=== PATIENT | male | born 1960 | race Caucasian/White ===

== ENCOUNTER 2017-04-13 16:27 | Observation (INO) | payer OTHER ==
[~2017-04-13] VITALS: Ht 170.2 cm; Wt 77.6 kg
[~2017-04-13 16:27] MED LIST: APIX5TAB PO; DIGO250T16 PO
[2017-04-13 16:30] VITALS: Ht 170.2 cm; Wt 77.6 kg
[2017-04-13] MEDS ORDERED: SOD CHLORIDE 0.9% 500 ML IV STA (19:55)
[2017-04-13] MEDS ORDERED: METO50TA16 PO (20:05)
--- NOTE | 2017-04-13 20:14 | RADRPT ---
PROCEDURE: CT Head without. CLINICAL INDICATION: Possible stroke. TECHNIQUE: The study was performed utilizing a multi-slice, multidetector CT scanner. Direct spira l 1 mm axial sections were obtained through the head without the use of intravenous contrast materia l. 1 or more of the following dose reduction techniques were utilized: Automated exposure control, adjustment of the mA and/or kV according to patient's size, iterative reconstruction technique. Co keyonna and sagittal reformations were obtained. The images were reviewed on a PACS workstation. RADIATION DOSE: CTDIvol: 44.6 mGyDLP: 720.2 mGy-cm COMPARISON: No prior studies are available for comparison. FINDINGS: There is no intracranial hemorrhage, extra-axial fluid collection, mass lesion, midline shift or hyd rocephalus. The ventricles, sulci and cisterns are within normal limits. The white matter is unrem arkable. The feliciano-white matter differentiation is preserved. The basal cisterns are patent. The m idline structures are intact. The orbits, calvarium and extracranial soft tissues are normal in graciela earance. The visualized paranasal sinuses, mastoid air cells and middle ear cavities are normally ae rated. IMPRESSION: 1. No acute intracranial abnormality. No intracranial hemorrhage, extra-axial fluid collection, ma ss lesion or hydrocephalous. The above findings were discussed with Patient's physician MORIAH SHEFFIELD by telephone on 04/13/2017 8: 13:44 PM. RPTAT: HGAS .Samir Ennis MD, Date Time Electronically viewed and signed by .Samir Ennis MD, MD on 04/13/2017 20:13 .S/
[2017-04-13 20:27] LABS: ADD SCAN DIFF NO
[2017-04-13 20:31] LABS: ADD UMIC NO; URINE BILIRUBIN (Dip) NEGATIVE (NEGATIVE); URINE BLOOD (Dip) NEGATIVE (NEGATIVE); URINE COLOR LT. YELLOW (YELLOW); URINE GLUCOSE (Dip) NEGATIVE (NEGATIVE); URINE KETONES (Dip) NEGATIVE (NEGATIVE); URINE LEUKOCYTE ESTERASE (Dip) NEGATIVE (NEGATIVE); URINE NITRITE (Dip) NEGATIVE (NEGATIVE); URINE TOTAL PROTEIN (Dip) NEGATIVE (NEGATIVE); URINE UROBILINOGEN (Dip) 0.2 E.U./dL (0.1-1.0)
[2017-04-13 20:31] LABS: BASOPHILS % 0.5 % (0.0-2.0); EOSINOPHILS # 0.2 10^3/ul (0.0-0.5); EOSINOPHILS % 2.8 % (0.0-7.0); HEMATOCRIT 41.3 % (42.0-52.0); HEMOGLOBIN 14.1 g/dl (14.0-18.0); LYMPHOCYTES # 2.5 10^3/ul (0.8-2.9); LYMPHOCYTES % 40.5 % (15.0-51.0); MEAN CORPUSCULAR HEMOGLOBIN 30.8 pg (29.0-33.0); MEAN CORPUSCULAR HGB CONC 34.1 g/dl (32.0-37.0); MEAN CORPUSCULAR VOLUME 90.2 fl (82.0-101.0); MEAN PLATELET VOLUME 11.7 fl (7.4-10.4); MONOCYTE # 0.7 10^3/ul (0.3-0.9); MONOCYTES % 11.3 % (0.0-11.0); NEUTROPHIL # 2.8 10^3/ul (1.6-7.5); NEUTROPHILS % 44.7 % (39.0-77.0); PLATELET COUNT 249 10^3/UL (140-415); RED BLOOD COUNT 4.58 10^6/ul (4.70-6.10); RED CELL DISTRIBUTION WIDTH 13.1 % (11.5-14.5); WHITE BLOOD COUNT 6.2 10^3/ul (4.8-10.8)
[2017-04-13 20:47] LABS: INR 1.12; PROTIME 14.4 Sec (12.2-14.2); PT RATIO 1.1
[2017-04-13 20:48] LABS: ANION GAP 12 (8-16); BLOOD UREA NITROGEN 20 mg/dl (7-20); CALCIUM 9.3 mg/dl (8.4-10.2); CARBON DIOXIDE 22 mmol/L (21-31); CHLORIDE 106 mmol/L (97-110); CREATININE 1.05 mg/dl (0.61-1.24); GLUCOSE 103 mg/dl (70-220); PARTIAL THROMBOPLASTIN TIME 28.9 Sec (25.0-35.0); SODIUM 136 mmol/L (135-144)
--- NOTE | 2017-04-13 20:50 | RADRPT ---
PROCEDURE: XR Chest. CLINICAL INDICATION: Possible stroke. Neurological deficit. TECHNIQUE: Single frontal chest x-ray. COMPARISON: None available. FINDINGS: The cardiomediastinal silhouette is mildly enlarged. No pneumothorax, pleural effusion or consolidation is seen. No acute osseous abnormality is noted. IMPRESSION: 1. Mild cardiomegaly. RPTAT: HFN .Ita Jones MD, Date Time Electronically viewed and signed by .Ita Jones MD, on 04/13/2017 20:50 .N/
[2017-04-13 21:00] LABS: TROPONIN-I < 0.012 ng/ml (0.00-0.12)
[2017-04-13 21:03] LABS: BARBITURATES NEGATIVE (NEGATIVE); BENZODIAZEPINES NEGATIVE (NEGATIVE); CANNABINOIDS NEGATIVE (NEGATIVE); COCAINE NEGATIVE (NEGATIVE); OPIATES NEGATIVE (NEGATIVE)
[2017-04-13] MEDS ORDERED: KETOROLAC 30 MG INJ IV STA (21:46)
[2017-04-13] MEDS ORDERED: ASPIRIN 325 MG TAB PO ONE (22:00)
[2017-04-13] MEDS ORDERED: ONDANSETRON 4 MG INJ IV PRN (22:30)
[2017-04-13] MEDS ORDERED: ACETAMINOPHEN 325 MG TAB PO PRN (22:30)
--- NOTE | 2017-04-13 22:42 | ERA ---
ER Documentation Chief Complaint Date/Time DATE: 04/13/17 TIME: 22:34 Chief Complaint LEFT SIDED NUMBNESS STARTED 2PM YESTEDAY. A&OX4. SPEECH CLEAR. CATERING DIRECTOR EQUAL HPI This 56-year-old male came in the emergency room for several hours of numbness and vertigo that started abruptly at around 2 PM yesterday. Over hours this cleared. The patient still has some dizziness and has a headache. 2 weeks ago he stopped his anticoagulant medications for atrial fibrillation. States that he was unable to feel his left leg and arm for several hours but did not present to the hospital at that time. His headache is mild to moderate and is a bandlike sensation goes from the frontal region to the occipital region. This headache came on gradually. ROS All systems reviewed and are negative except as per history of present illness. Medications Home Meds Reported Medications Metoprolol Succinate* (Toprol XL*) 50 Mg Tab.er.24h, 50 MG PO DAILY, #30 TAB 04/13/17 Allergies Allergies: Coded Allergies: No Known Allergy (Unverified , 04/13/17) PMhx/Soc History of Surgery: Yes (ABDOMINAL HERNIA ) Anesthesia Reaction: No Hx Neurological Disorder: No Hx Respiratory Disorders: Yes (COPD) Hx Cardiac Disorders: Yes (A FIB ) Hx Psychiatric Problems: No Hx Miscellaneous Medical Probl: Yes (HIGH CHOLESTEROL ) Hx Alcohol Use: No Hx Substance Use: No Hx Tobacco Use: No Smoking Status: Never smoker Physical Exam Vitals Vital Signs Date Time Temp Pulse Resp B/P Pulse Ox O2 Delivery O2 Flow Rate FiO2 04/13/17 21:45 98.5 64 16 123/95 100 Room Air 04/13/17 20:13 71 17 111/78 98 Room Air 04/13/17 19:42 98.2 72 16 109/79 99 Room Air 04/13/17 16:30 97.9 91 19 114/70 98 Physical Exam Const: [] No distress Head: Atraumatic Eyes: Normal Conjunctiva, EOMI, PRL ENT: Normal External Ears, Nose and Mouth. Neck: Full range of motion..~ No meningismus. Resp: Clear to auscultation bilaterally Cardio: Regular rate and rhythm, no murmurs Abd: Soft, non tender, non distended. Normal bowel sounds Skin: No petechiae or rashes Back: No midline or flank tenderness Ext: No cyanosis, or edema ,distal pulses intact all 4 extremities Neur: Awake and alert and oriented 3, creatinine is 2 through 12 intact, no cerebellar deficits, 5 out of 5 strength all extremity Psych: Normal Mood and Affect Result Diagram: 04/13/17201404/13/172014 Results 24 hrs Laboratory Tests Test 04/13/17 20:05 04/13/17 20:14 04/13/17 20:15 Urine Color LT. YELLOW Urine Clarity CLEAR Urine pH 6.0 Urine Specific [place] <=1.005 Urine Ketones NEGATIVE Urine Nitrite NEGATIVE Urine Bilirubin NEGATIVE Urine Urobilinogen 0.2 E.U./dL Urine Leukocyte Esterase NEGATIVE Urine Hemoglobin NEGATIVE Urine Glucose NEGATIVE% Urine Total Protein NEGATIVE Urine Opiates Screen NEGATIVE Urine Barbiturates NEGATIVE Urine Amphetamines Screen NEGATIVE Urine Benzodiazepines Screen NEGATIVE Urine Cocaine Screen NEGATIVE Urine Cannabinoids NEGATIVE Bedside Glucose 90mg/dL White Blood Count 6.210^3/ul Red Blood Count 4.5810^6/ul Hemoglobin 14.1g/dl Hematocrit 41.3% Mean Corpuscular Volume 90.2fl Mean Corpuscular Hemoglobin 30.8pg Mean Corpuscular Hemoglobin Concent 34.1g/dl Red Cell Distribution Width 13.1% Platelet Count 60254^3/UL Mean Platelet Volume 11.7fl Neutrophils % 44.7% Lymphocytes % 40.5% Monocytes % 11.3% Eosinophils % 2.8% Basophils % 0.5% Nucleated Red Blood Cells % 0.0/100WBC Neutrophils # 2.810^3/ul Lymphocytes # 2.510^3/ul Monocytes # 0.710^3/ul Eosinophils # 0.210^3/ul Basophils # 0.010^3/ul Nucleated Red Blood Cells # 0.010^3/ul Prothrombin Time 14.4Sec Prothrombin Time Ratio 1.1 INR International Normalized Ratio 1.12 Activated Partial Thromboplast Time 28.9Sec Sodium Level 136mmol/L Potassium Level 4.0mmol/L Chloride Level 106mmol/L Carbon Dioxide Level 22mmol/L Anion Gap 12 Blood Urea Nitrogen 20mg/dl Creatinine 1.05mg/dl Glucose Level 103mg/dl Hemoglobin A1c 6.0% Calcium Level 9.3mg/dl Troponin I < 0.012ng/ml Current Medications Medications (Trade) Dose Ordered Sig/Sunita Route PRN Reason Start Time Stop Time Status Last Admin Dose Admin Sodium Chloride (NS) 500 ml @ 500 mls/hr Q1H STAT IV 04/13/17 19:55 04/13/17 20:54 DC 04/13/17 20:18 Ketorolac Tromethamine (Toradol) 30 mg ONCE STAT IV 04/13/17 21:46 04/13/17 21:48 DC 04/13/17 21:54 Aspirin (Aspirin) 325 mg ONCE ONCE PO 04/13/17 22:00 04/13/17 22:01 DC 04/13/17 21:54 Ondansetron HCl (Zofran Inj) 4 mg ER BRIDGE PRN IV NAUSEA AND/OR VOMITING 04/13/17 22:30 04/14/17 22:29 Acetaminophen (Tylenol Tab) 650 mg ER BRIDGE PRN PO MILD PAIN/FEVER 04/13/17 22:30 04/14/17 22:29 Procedures/MDM Symptoms very concerning for TIA in a high risk patient being recently off anticoagulation having atrial fibrillation. Patient's head CT returned negative fortunately he was given 325 mg aspirin. He was also given Toradol IV which helped with his headache. Has no signs of cardiac ischemia currently. And has shows scaly ER was 0. I spoke to Dr. Cha agrees to admit the patient to observation for MRI and further workup. Very low suspicion for subarachnoid hemorrhage secondary to patient's gradual presentation of headache and easily resolution in the emergency room. EKG interpretation: Atrial fibrillation rate of 66, normal axis, no ST or T- wave changes concerning for acute ischemia, normal intervals. groundwater monitoring technician interpretation: Atrial fibrillation is rate controlled without any other arrhythmias Chest x-ray interpretation: I see no acute process, no vitamins tenderness or pneumothorax no pulmonary edema, no fractures CT head interpretation: I see no acute process. I see no hemorrhage no mass- effect or midline shift no skull fractures Departure Diagnosis: Primary Impression: TIA (transient ischemic attack) Additional Impression: Headache Condition: Stable YOHANNES MAJOR DO April 13, 2017 22:42
[2017-04-13 23:27] VITALS: TEMP 98.2
[2017-04-14] VITALS (12 sets, daily range): BP systolic 98–121; BP diastolic 61–81; PULSE 58–78; RESP 15–19
[2017-04-14] MEDS ORDERED: KETOROLAC 30 MG INJ IV PRN (01:00)
[2017-04-14 08:19] LABS: ADD SCAN DIFF NO
[2017-04-14] MEDS: METOPROLOL (XL) 50 MG TAB PO SCH (08:39)
[2017-04-14 08:42] LABS: BASOPHILS % 0.5 % (0.0-2.0); EOSINOPHILS # 0.1 10^3/ul (0.0-0.5); EOSINOPHILS % 2.4 % (0.0-7.0); HEMATOCRIT 43.6 % (42.0-52.0); HEMOGLOBIN 14.3 g/dl (14.0-18.0); LYMPHOCYTES # 2.4 10^3/ul (0.8-2.9); LYMPHOCYTES % 41.6 % (15.0-51.0); MEAN CORPUSCULAR HGB CONC 32.8 g/dl (32.0-37.0); MEAN CORPUSCULAR VOLUME 91.6 fl (82.0-101.0); MONOCYTE # 0.7 10^3/ul (0.3-0.9); MONOCYTES % 11.3 % (0.0-11.0); NEUTROPHIL # 2.6 10^3/ul (1.6-7.5); NEUTROPHILS % 44.2 % (39.0-77.0); PLATELET COUNT 247 10^3/UL (140-415); RED BLOOD COUNT 4.76 10^6/ul (4.70-6.10); RED CELL DISTRIBUTION WIDTH 13.3 % (11.5-14.5); WHITE BLOOD COUNT 5.8 10^3/ul (4.8-10.8)
[2017-04-14 08:49] LABS: POTASSIUM 4.5 mmol/L (3.5-5.1)
[2017-04-14 08:52] LABS: CREATININE 1.08 mg/dl (0.61-1.24)
[2017-04-14 08:53] LABS: CALCIUM 9.3 mg/dl (8.4-10.2); CHOL/HDL RATIO 3.4 RATIO
--- NOTE | 2017-04-14 10:26 | RADRPT ---
Echocardiogram Report Patient Name: PALOMO SALDAÑA Gender: Male Date: 1960 Study Date: 14-Apr-2017 Pond Worker: Matheus Moncada [facility] Location: 518 Ref. Physician: KENDELL RIVERA Quality: Good Procedures: Transthoracic echocardiogram with complete 2D, M-Mode, and doppler examination. Indications: Atrial Fibrillation. 2D/M Mode Doppler Measurement Value Normal Ranges Measurement Value Normal Ranges LVIDd 2D 3.7 3.5 - 5.6 cm AV Peak Manuel 1.7 m/sec LVIDs 2D 2.7 2.1 - 4.1 cm AV Peak PG 10.9 mmHg LVPWd 2D 0.9 0.6 - 1.1 cm LVOT Peak Manuel 0.9 m/sec IVSd 2D 1.0 0.6 - 1.1 cm LVOT Peak PG 3.6 mmHg AoR Diam 2D 2.8 2.0 - 3.7 cm MV PHT 145.5 msec EDV 2D 57.6 cm3 MV Peak Manuel 2.2 m/sec ESV 2D 19.4 cm3 MV Peak PG 19.6 mmHg LA Dimen 2D 3.9 2.3 - 4.0 cm MV Mean Manuel 1.2 m/sec MV Mean PG 7.6 mmHg MV PHT 145.5 msec MV VTI 49.9 cm MVA PHT 1.5 cm2 TR Peak Manuel 2.7 m/sec TR Peak PG 28.3 mmHg RVSP 36.0 mmHg Findings Left Ventricle: Normal left ventricular systolic function. Normal left ventricular cavity size. Normal left ventricular wall thickness. Ejection fraction is visually estimated at 65 %. Right Ventricle: Normal right ventricular size. Normal right ventricular systolic function. Left Atrium: The left atrium is normal in size. Right Atrium: The right atrium is normal in size. Mitral Valve: Mitral valve leaflets appear mildly thickened. Mild mitral annular calcification. Mild to moderate mitral valve regurgitation. Mild mitral stenosis. MeanPG 7.60 mmHg. Aortic Valve: Normal appearance of the aortic valve. No significant aortic stenosis or insufficiency. Tricuspid Valve: Normal appearance of the tricuspid valve. Estimated peak PA systolic pressure 36 mmHg. There is mild tricuspid regurgitation. Pulmonic Valve: Normal pulmonic valve appearance. There is trace pulmonic regurgitation. Pericardium: Normal pericardium with no significant pericardial effusion. Aorta: Normal aortic root. IVC: Dilated IVC with respiratory collapse consistent with elevated right atrial pressure. Conclusions Normal left ventricular systolic function. Normal left ventricular cavity size. Normal left ventricular wall thickness. Ejection fraction is visually estimated at 65 %. Normal right ventricular size. Normal right ventricular systolic function. The left atrium is normal in size. The right atrium is normal in size. Mild to moderate mitral valve regurgitation. Mild mitral stenosis. Estimated peak PA systolic pressure 36 mmHg. There is mild tricuspid regurgitation. No significant aortic stenosis or insufficiency. Normal pericardium with no significant pericardial effusion. Electronically Signed By: Cole Moss 14-Apr-2017 10:26:06 -0700 Patient Name: PALOMO SALDAÑA Study Date: 14-Apr-2017 [id number]
[2017-04-14] MEDS: APIXABAN 5 MG TABLET PO SCH ×2 (11:02→20:47)
--- NOTE | 2017-04-14 11:09 | CONS ---
Date/Time of Note Date/Time of Note DATE: 04/14/17 TIME: 10:51 Assessment/Plan Assessment/Plan Additional Assessment/Plan Left-sided weakness, resolved Atrial fibrillation Preserved ejection fraction Mitral valve disease -Patient with left-sided weakness lasting 1 hour which later resolved. He has had no further recurrence of symptoms. Echocardiogram with preserved ejection fraction. Given concern for TIA and patient with atrial fibrillation, would recommend restarting anticoagulation if no contraindication. Patient was previously on Eliquis 5 mg p.o. twice daily. Would continue. Continue Lopressor for rate control. Start statin therapy. Will order carotid Dopplers. Otherwise no further inpatient cardiac workup needed at the current time. Consultation Date/Type/Reason Admit Date/Time April 13, 2017 at 22:10 Type of Consultation: cv Reason for Consultation Atrial fibrillation Hx of Present Illness This is a 56-year-old male with past medical history of atrial fibrillation, mitral valve disease who presented to the emergency room secondary to 1 hour episode of left arm and left lower extremity weakness. Patient works as an maintenance electrician. While he was working, he felt sudden onset of left arm and left lower extremity weakness and numbness. His speech was not affected. He had mild symptoms of dizziness at the same time. Symptoms resolved after 1 hour. He did go see his physician and he was awaiting outpatient imaging studies to be done. He was concerned regarding his symptoms, and he came to the emergency room yesterday for further evaluation and care. He denies any prior episodes of similar symptoms or any further symptoms since then. He was previously on Eliquis for anticoagulation and this was stopped in early March. As per the patient, he was told he had minimal risk factors and it was unclear of the benefits of anticoagulation. He denies any bleeding tendencies at the current time. He denies any chest pain, palpitations, dizziness or lightheadedness. 12 point review of systems was performed with all pertinent positives and negatives mentioned above and all else is negative Past Medical History Atrial fibrillation Mitral valve disease Family History Significant Family History: no pertinent family hx Social History Alcohol Use: none Smoking Status: Never smoker Other Social History Works as an maintenance electrician Exam/Review of Systems Vital Signs Vitals Vital Signs Date Time Temp Pulse Resp B/P Pulse Ox O2 Delivery O2 Flow Rate FiO2 04/14/17 08:19 64 04/14/17 07:08 98.2 19 108/74 99 04/13/17 23:27 Room Air Intake and Output 04/13/17 04/13/17 04/14/17 15:00 23:00 07:00 Intake Total 500 ml 360 ml Balance 500 ml 360 ml Exam No apparent distress Constitutional: alert, oriented, well developed Head: normocephalic Neck: supple Respiratory: other (Coarse breath sounds bilaterally, no wheezing) Cardiovascular: irregular rhythm, other (S1-S2 heard), systolic murmur Gastrointestinal: bowel sounds, non-tender, other (No guarding), soft Extremities: other (No edema) Neurological: other (+5 out of 5 muscle strength in all 4 extremities) Results Result Diagram: 04/14/17 0710 04/14/17 0710 Results 24 hrs Laboratory Tests Test 04/13/17 20:05 04/13/17 20:14 04/13/17 20:15 04/14/17 01:00 Urine Color LT. YELLOW Urine Clarity CLEAR Urine pH 6.0 Urine Specific [place] <=1.005 L Urine Ketones NEGATIVE Urine Nitrite NEGATIVE Urine Bilirubin NEGATIVE Urine Urobilinogen 0.2 E.U./dL Urine Leukocyte Esterase NEGATIVE Urine Hemoglobin NEGATIVE Urine Glucose NEGATIVE Urine Total Protein NEGATIVE Urine Opiates Screen NEGATIVE Urine Barbiturates NEGATIVE Urine Amphetamines Screen NEGATIVE Urine Benzodiazepines Screen NEGATIVE Urine Cocaine Screen NEGATIVE Urine Cannabinoids NEGATIVE Bedside Glucose 90 White Blood Count 6.2 Red Blood Count 4.58 L Hemoglobin 14.1 Hematocrit 41.3 L Mean Corpuscular Volume 90.2 Mean Corpuscular Hemoglobin 30.8 Mean Corpuscular Hemoglobin Concent 34.1 Red Cell Distribution Width 13.1 Platelet Count 249 Mean Platelet Volume 11.7 H Neutrophils % 44.7 Lymphocytes % 40.5 Monocytes % 11.3 H Eosinophils % 2.8 Basophils % 0.5 Nucleated Red Blood Cells % 0.0 Neutrophils # 2.8 Lymphocytes # 2.5 Monocytes # 0.7 Eosinophils # 0.2 Basophils # 0.0 Nucleated Red Blood Cells # 0.0 Prothrombin Time 14.4 H Prothrombin Time Ratio 1.1 INR International Normalized Ratio 1.12 Activated Partial Thromboplast Time 28.9 Sodium Level 136 Potassium Level 4.0 Chloride Level 106 Carbon Dioxide Level 22 Anion Gap 12 Blood Urea Nitrogen 20 Creatinine 1.05 Glucose Level 103 Hemoglobin A1c 6.0 H Calcium Level 9.3 Troponin I < 0.012 < 0.012 Test 04/14/17 07:10 White Blood Count 5.8 Red Blood Count 4.76 Hemoglobin 14.3 Hematocrit 43.6 Mean Corpuscular Volume 91.6 Mean Corpuscular Hemoglobin 30.0 Mean Corpuscular Hemoglobin Concent 32.8 Red Cell Distribution Width 13.3 Platelet Count 247 Mean Platelet Volume 12.0 H Neutrophils % 44.2 Lymphocytes % 41.6 Monocytes % 11.3 H Eosinophils % 2.4 Basophils % 0.5 Nucleated Red Blood Cells % 0.0 Neutrophils # 2.6 Lymphocytes # 2.4 Monocytes # 0.7 Eosinophils # 0.1 Basophils # 0.0 Nucleated Red Blood Cells # 0.0 Sodium Level 141 Potassium Level 4.5 Chloride Level 107 Carbon Dioxide Level 20 L Anion Gap 19 #H Blood Urea Nitrogen 17 Creatinine 1.08 Glucose Level 98 Calcium Level 9.3 Triglycerides Level 89 Cholesterol Level 178 LDL Cholesterol, Calculated 108 HDL Cholesterol 52 Cholesterol/HDL Ratio 3.4 Medications Medications Current Medications Metoprolol Succinate (Toprol Xl) 50 mg DAILY PO Last administered on 04/14/17t 08:39; Admin Dose 50 MG; Start 04/14/17 at 09:00 Ketorolac Tromethamine (Toradol) 30 mg Q8H PRN IV PAIN; Start 04/14/17 at 01:00 ; Stop 04/17/17 at 00:59 Apixaban (Eliquis) 5 mg BID PO ; Start 04/14/17 at 10:30 Atorvastatin Calcium (Lipitor) 20 mg HS PO ; Start 04/14/17 at 21:00 Procedures Procedures ECG demonstrates atrial fibrillation at 66 bpm, QRS 89 ms, no significant ischemic STT wave abnormalities Cole Moss DO April 14, 2017 11:06
--- NOTE | 2017-04-14 11:35 | RADRPT ---
PROCEDURE: US Carotids. CLINICAL INDICATION: bruit , tia TECHNIQUE: Multiple sonographic of the carotid bifurcation region and vertebral arteries were obta ined utilizing feliciano scale, duplex and color-flow imaging. The images were reviewed on a PACS worksta tion. COMPARISON: No prior studies are available for comparison. FINDINGS: Evaluation of the right carotid bifurcation region reveals no significant calcific atherosclerotic d isease. Evaluation of the left carotid bifurcation region reveals no significant calcific atherosclerotic di sease. There is antegrade flow within the vertebral arteries bilaterally. RIGHT CAROTID MEASUREMENTS: Common Carotid Arcdti09.9 (cm/sec) Internal Carotid Artery - aakrsufc60.9 (cm/sec) Internal Carotid Artery - mid50.1 (cm/sec) Internal Carotid Artery - .8 (cm/sec) Internal Carotid/Common Carotid0.95 LEFT CAROTID MEASUREMENTS: Common Carotid Gykflu60.8 (cm/sec) Internal Carotid Artery - eljrtdew64.2 (cm/sec) Internal Carotid Artery - mid52.8 (cm/sec) Internal Carotid Artery - puuhwg19 (cm/sec) Internal Carotid/Common Carotid0.78 RPTAT: AA IMPRESSION: No evidence for hemodynamically significant stenosis in the bilateral internal carotid arteries - va lidated velocity measurements with angiographic measurements, velocity criteria are extrapolated fro m diameter data as defined by the Society of Radiologists in Ultrasound Consensus Conference Radiolo gy 2003; 229;340-346. This study does indirectly reference the measurement of the distal ICA diamet er as the denominator for stenosis measurement. Normal antegrade flow in the vertebral arteries bilaterally. .Miguel Jenkins MD, Date Time Electronically viewed and signed by .Miguel Jenkins MD, MD on 04/14/2017 11:34 .S/
[2017-04-14] MEDS ORDERED: traMADol 50 MG TAB PO PRN (17:00)
--- NOTE | 2017-04-14 17:50 | HP ---
DATE OF ADMISSION: 04/13/2017 PRIMARY CARE PHYSICIAN: Unknown. PRIMARY CUT PRESSMAN: Dr. Cramer. CHIEF COMPLAINT ON ADMISSION: Left-sided weakness. HISTORY OF PRESENT ILLNESS: This is a 56-year-old male with known atrial fibrillation and apparentl y also with mitral valve disease who presented to the emergency department due to an episode of left arm and left lower extremity weakness. The patient reports that he had evaluation by his cardiolo gist this past March and was then taken off anticoagulation, Eliquis and also Lipitor from what he is reporting and the day prior to admission, he had an episode of left upper extremity and left lower e xtremity weakness that lasted 1 hour and resolved after that. The patient was concerned regarding h is symptoms; therefore, he came to the emergency department greater than 24 hours later. He denies any dizziness, nausea, vomiting, diplopia, sensory deficit, difficulty ambulating, difficulty focusi ng with this episode. He denies any previous episodes similar and no similar episodes since then. In the emergency department, he had a CAT scan of the brain which was negative. He was found to be in atrial fibrillation, rate controlled with his metoprolol. Due to the fact that he was on anticoa gulation with atrial fibrillation there was concern for cerebrovascular accident versus transient is chemic attack episode. Patient was admitted to observation for evaluation. He had MRI/MRA of the b rain which are still pending currently. Will have been notified by MRI that he has to be pushed aurea k to tomorrow. Therefore, there is delay in service keeping the patient here an extra day. He has been restarted on Eliquis per Dr. Moss's evaluation and also 2-D echocardiogram has been done. He had a carotid ultrasound which was negative. Pending his MRI tomorrow morning the patient will be discharged. ALLERGIES: NO KNOWN ALLERGIES. PAST MEDICAL HISTORY: 1. Atrial fibrillation. 2. Mitral valve disease 3. Mitral regurgitation. FAMILY HISTORY: Nonpertinent. PAST SURGICAL HISTORY: None. REVIEW OF SYSTEMS: As per HPI. OUTPATIENT MEDICATIONS: 1. Metoprolol XL 50 mg p.o. daily. 2. Eliquis 5 mg p.o. daily. 3. Lipitor 20 mg p.o. at bedtime, but the patient has stopped it previously. PHYSICAL EXAMINATION: VITAL SIGNS: Temperature is 98.0, heart rate of 70, atrial fibrillation, rate controlled blood pres sure is 121/81. Patient is satting 98% on room air. GENERAL: He is alert and oriented x4. He is in no acute distress currently. He denies any left he miparesis of any sort and he is back to his baseline. HEENT: Pupils are equally round and reactive to light. Extraocular muscles are intact. Anicteric sclerae. NECK: No JVD, no thyromegaly noted. LUNGS: Clear to auscultation bilaterally. ABDOMEN: Soft, nontender, nondistended. Bowel sounds are present. EXTREMITIES: No edema, clubbing or cyanosis. NEUROLOGIC: Moderate strength is 5/5 bilaterally upper and lower extremities. There are no signs o f hemiparesis, currently. Gait is within normal. Patient is able to ambulate. Sensation is intact . Vision intact. Cranial nerves II through XII intact. LABORATORY DATA: White blood cell count is 5.8, hemoglobin 14.3, hematocrit 43.6, platelet count of 247. Chemistry with a sodium of 141, potassium 4.5, chloride 107, bicarbonate 20, BUN 17, creatini ne 1.08, glucose of 98. Hemoglobin A1c 6.0, calcium of 9.3. Troponins are negative x2, triglycerid es 89. Cholesterol 178, LDL is 108, HDL of 52. INR 1.12, PT 28.9. PT 14.4. Urinalysis is within normal. Tox screen is also negative on admission. RADIOLOGICAL DATA: 1. Chest x-ray shows mild cardiomegaly and no other acute cardiopulmonary disease seen. 2. CAT scan of the brain shows no acute intracranial abnormalities. 3. Carotid Dopplers are within normal. MRI/MRA brain and MRA neck are all pending at this time. EKG shows atrial fibrillation, rate controlled. ASSESSMENT AND PLAN: This is a 56-year-old male with: 1. Transient episode of left hemiparesis which is completely resolved currently, possibly a transie nt ischemic attack given his underlying atrial fibrillation. Therefore, I agree with Dr. Moss. T he patient is placed back on Eliquis 5 mg p.o. b.i.d. 2. He is to continue Toprol-XL for rate control. 3. Atrial fibrillation, rate controlled, now back on anticoagulation, stable. 4. Hyperlipidemia, on Lipitor. 5. Prophylaxis: Pepcid for gastrointestinal prophylaxis and patient back on anticoagulation algricel y. DISPOSITION: Awaiting MRI/MRA of the brain and MRA neck to complete his rule out transient ischemic attack workup, since it has been pushed back tomorrow due to availability of MRI, this is delaying discharge as the patient is currently discharged today. The MRIs were done today. We will await fo r MRI to be done in the morning prior to discharge. Dictated By: BETH HESS/RENETTA Conf#: [id number] DID#: [id number]
[2017-04-14] MEDS ORDERED: ATORVASTATIN 20 MG TAB PO SCH (21:00)
[2017-04-15] VITALS (9 sets, daily range): BP systolic 100–122; BP diastolic 61–75; PULSE 58–72; RESP 15–18
[2017-04-15] MEDS: APIXABAN 5 MG TABLET PO SCH (08:10)
[2017-04-15] MEDS: METOPROLOL (XL) 50 MG TAB PO SCH (08:11)
--- NOTE | 2017-04-15 12:05 | RADRPT ---
PROCEDURE: MRI Brain without contrast. CLINICAL INDICATION: Dizziness and numbness of left arm. Transient ischemic attack. TECHNIQUE: An MRI of the brain was performed utilizing the following sequences: Sagittal and axial T1 weighted, axial T2 weighted, axial diffusion weighted with ADC mapping, coronal GRE, and axial F LAIR. COMPARISON: None. FINDINGS: There are few foci of restricted diffusion are noted in the right parietal lobe measuring up to 1.1 cm consistent with acute/recent infarcts. No hypointense signal abnormalities are seen on the GRE im ages to suggest the presence of blood degradation products. There is no evidence of intracranial he morrhage, mass effect, or midline shift. No extra-axial fluid collections are seen. The ventricles a nd sulci are mildly enlarged indicative of volume loss. There are mild scattered foci of T2 FLAIR hyperintensity in the periventricular, deep, and subcortic al white matter, which are nonspecific in etiology but likely reflect chronic small vessel ischemic changes. No abnormal intracranial vascular flow void is noted. The visualized paranasal sinuses demonstrate m ild to moderate scattered mucosal thickening more pronounced in ethmoid air cells and maxillary sinu ses. There are mucous retention cyst in bilateral maxillary sinuses. IMPRESSION: 1. 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 2. Mild chronic small vessel ischemic changes. 3. Mild generalized cerebral volume loss. A call report was made and above findings were discussed and acknowledged by patient's nurse ROS wilder on 04/15/2017 11:59:54 AM to relay to responsible physician. RPTAT: HFN .Ita Jones MD, Date Time Electronically viewed and signed by .Ita Jones MD, MD on 04/15/2017 12:05 .N/
--- NOTE | 2017-04-15 12:09 | RADRPT ---
PROCEDURE: MRA Neck without contrast. CLINICAL INDICATION: Transit ischemic attack. TECHNIQUE: An MRA of the major cervical arteries was performed utilizing axial 2D time of flight, 3-D [id number]-rfsvmh through the carotid bifurcations, and dynamic contrast enhanced 3-D MR angiograph y technique. Source and MIP images were reviewed. COMPARISON: Carotid ultrasound 04/14/2017. FINDINGS: The origins of the great vessels off the aortic arch are not visualized for evaluation. The common carotid and internal carotid arteries are patent without hemodynamically significant stenosis by DOMENICA CET criteria. Direct measurements of vessel diameters was made in reference to measurements of the d istal internal carotid artery diameter. Bilateral vertebral arteries are patent without high-grade stenosis. IMPRESSION: 1. Patent major neck arteries. RPTAT: HFN .Ita Jones MD, Date Time Electronically viewed and signed by .Ita Jones MD, on 04/15/2017 12:09 .N/
--- NOTE | 2017-04-15 12:10 | RADRPT ---
PROCEDURE: MRA Brain. CLINICAL INDICATION: Transit ischemic attack. TECHNIQUE: An MRA of the brain was performed without intravenous contrast utilizing the following sequences: 3-D [id number] images through the intracranial vasculature with post processed vibha l intensity projections in multiple planes. COMPARISON: Concurrent MRI of the brain. FINDINGS: The petrous, cavernous, and supraclinoid internal carotid artery segments are patent without evidenc e of significant stenosis. The proximal anterior cerebral and middle cerebral arteries are patent wi thout significant stenosis. The intradural vertebral arteries, basilar artery and posterior cerebra l arteries are patent without evidence of significant focal stenosis. No aneurysms are identified. IMPRESSION: 1. Patent major intracranial arteries. RPTAT: HFN .Ita Jones MD, MD Date Time Electronically viewed and signed by .Ita Jones MD, MD on 04/15/2017 12:10 .N/
--- NOTE | 2017-04-15 12:38 | PN ---
Date/Time of Note Date/Time of Note DATE: 04/15/17 TIME: 12:32 Assessment/Plan VTE Prophylaxis VTE Prophylaxis Intervention: other (on Eliquis ) Lines/Catheters IV [facility] Saline Lock Assessment/Plan Assessment/Plan 56-year-old male with: 1. Transient episode of left hemiparesis which is completely resolved currently , MRI did show few foci of acute/recent infarcts in the right parietal lobe. Already back on Eliquis given A fib Continue Toprol-XL for rate control. 2. Atrial fibrillation, rate controlled, now back on anticoagulation, stable. 4. Hyperlipidemia, on Lipitor. Prophylaxis: Pepcid for gastrointestinal prophylaxis and patient back on anticoagulation already. DISPOSITION: D/c home and follow up with PCP and cardiology in 1 to 2 weeks. Subjective 24 Hr Interval Summary Free Text/Dictation Patient has no residual hemiparesis Neurologically back to baseline Exam/Review of Systems Vital Signs Vitals Vital Signs Date Time Temp Pulse Resp B/P Pulse Ox O2 Delivery O2 Flow Rate FiO2 04/15/17 12:00 68 04/15/17 11:44 98.1 18 122/61 96 04/13/17 23:27 Room Air Intake and Output 04/14/17 04/14/17 04/15/17 15:00 23:00 07:00 Intake Total 800 ml 240 ml Balance 800 ml 240 ml Exam Constitutional: alert, oriented, well developed Respiratory: clear to auscultation, normal air movement Cardiovascular: nl pulses, regular rate and rhythm Gastrointestinal: non-tender, soft Musculoskeletal: nl extremities to inspection Extremities: normal pulses, other (no edema, clubbing or cyanosis ) Neurological: DELIVERY RECRUITER II-XII intact, nl mental status, nl speech, nl strength Results Result Diagram: 04/14/17 0710 04/14/17 0710 Medications Medications Current Medications Metoprolol Succinate (Toprol Xl) 50 mg DAILY PO Last administered on 04/15/17 08:11; Admin Dose 50 MG; Start 04/14/17 at 09:00 Apixaban (Eliquis) 5 mg BID PO Last administered on 04/15/17 08:10; Admin Dose 5 MG; Start 04/14/17 at 10:30 Atorvastatin Calcium (Lipitor) 20 mg HS PO Last administered on 04/14/17 20:47 ; Admin Dose 20 MG; Start 04/14/17 at 21:00 Tramadol HCl (Ultram) 50 mg Q6H PRN PO PAIN; Start 04/14/17 at 17:00 Procedures Procedures PROCEDURE: MRI Brain without contrast. CLINICAL INDICATION: Dizziness and numbness of left arm. Transient ischemic attack. TECHNIQUE: An MRI of the brain was performed utilizing the following sequences : Sagittal and axial T1 weighted, axial T2 weighted, axial diffusion weighted with ADC mapping, coronal GRE, and axial FLAIR. COMPARISON: None. FINDINGS: There are few foci of restricted diffusion are noted in the right parietal lobe measuring up to 1.1 cm consistent with acute/recent infarcts. No hypointense signal abnormalities are seen on the GRE images to suggest the presence of blood degradation products. There is no evidence of intracranial hemorrhage, mass effect, or midline shift. No extra-axial fluid collections are seen. The ventricles and sulci are mildly enlarged indicative of volume loss. There are mild scattered foci of T2 FLAIR hyperintensity in the periventricular , deep, and subcortical white matter, which are nonspecific in etiology but likely reflect chronic small vessel ischemic changes. No abnormal intracranial vascular flow void is noted. The visualized paranasal sinuses demonstrate mild to moderate scattered mucosal thickening more pronounced in ethmoid air cells and maxillary sinuses. There are mucous retention cyst in bilateral maxillary sinuses. IMPRESSION: 1. 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 2. Mild chronic small vessel ischemic changes. 3. Mild generalized cerebral volume loss. A call report was made and above findings were discussed and acknowledged by patient's nurse ROS Michel on 04/15/2017 11:59:54 AM to relay to responsible physician. BETH PHIPPS April 15, 2017 12:38
--- NOTE | 2017-04-15 12:39 | PDOCDIS ---
Discharge Instructions CONDITION Patient Condition: Good HOME CARE INSTRUCTIONS: Diet Instructions: Low Fat /Cholesterol ACTIVITY: Activity Restrictions: No Restrictions FOLLOW UP/APPOINTMENTS Appointments Follow up with PCP in 1 week Follow up with Cardiology in 1 to 2 weeks SCHOOL/WORK RELEASE May return to School/Work on: April 26, 2017 BETH PHIPPS April 15, 2017 12:39
[2017-04-15] MEDS ORDERED: ATOR20TA65 PO (12:40)
== END 2017-04-15 15:50 | disposition home or self-care (01) ==
LOC: E/R 16:27 → MERGE 22:10 → TEL 22:10
PROVIDERS: ADMIT Internal Medicine; ATTEND Internal Medicine
DX: G45.9 Transient cerebral ischemic attack, unspecified (principal); J44.9 Chronic obstructive pulmonary disease, unspecified; I48.91 Unspecified atrial fibrillation; E78.00 Pure hypercholesterolemia, unspecified
CPT/HCPCS: 36415; 70450; 70544; 70549; 70551; 71010; 80048; 80061; 80307; 81003; 82962; 83036; 84484; 85025; 85610; 85730; 93005; 93306; 93880; 96361; 96374; J1885; J7040; Z7500; Z7502; Z7610; G0378